=== PATIENT | female | born 1935 | race Caucasian/White ===

== ENCOUNTER 2017-01-09 04:11 | Inpatient (IN) | payer MEDICARE, OTHER ==
[2017-01-03 16:46] LABS: BASOPHILS 0.6 %; BASOPHILS ABSOLUTE 0.06 10/3/uL (0.0-0.16); EOSINOPHILS 2.1 %; EOSINOPHILS ABSOLUTE 0.22 10/3/uL (0.0-0.53); HEMATOCRIT 34.5 % (36.0-48.0); HEMOGLOBIN 11.3 g/dL (12.0-16.0); IMMATURE GRANULOCYTES 0.2 %; IMMATURE GRANULOCYTES ABSOLUTE 0.02 10/3/uL (0.0-0.11); LYMPHOCYTES 21.6 %; LYMPHOCYTES ABSOLUTE 2.25 10/3/uL (0.67-4.30); MEAN PLATELET VOLUME 11.5 fL (9.2-13.0); MONOCYTES 7.1 %; MONOCYTES ABSOLUTE 0.74 10/3/uL (0.21-1.20); NEUTROPHILS 68.4 %; NEUTROPHILS ABSOLUTE 7.13 10/3/uL (2.02-8.40); PLATELET COUNT 338 10/3/uL (150-400); RED CELL COUNT 3.88 10/6/uL (4.0-5.6); WHITE BLOOD CELLS 10.4 10/3/uL (4.5-10.5)
[2017-01-03 16:48] LABS: MANUAL DIFF NO %; MEAN CORPUS HGB CONC 32.8 g/dL (32.0-36.0); MEAN CORPUSCULAR HEMOGLOB 29.1 pg (26.0-34.0); MEAN CORPUSCULAR VOLUME 88.9 fL (80-100); RBC DISTRIBUTION WIDTH 14.3 % (12.0-16.0)
[2017-01-03 16:57] LABS: INTERNATIONAL NORMAL RATI 1.4 UNITS (-); PARTIAL THROMBO TIME 29.8 SEC (22.5-37.2); PROTIME (NOT ORD) 16.7 SEC (12.0-14.5)
[2017-01-03 17:02] LABS: A/G RATIO 0.8 (0.7-1.9); ALBUMIN 3.3 G/DL (3.5-5.0); ALKALINE PHOSPHATASE 53 U/L (45-117); BUN (BLOOD UREA NITROGEN) 37 MG/DL (6-23); CALCIUM, SERUM 9.8 MG/DL (8.5-10.4); CHLORIDE, SERUM 102 MMOL/L (96-112); CO2 (CARBON DIOXIDE) 29 MMOL/L (24-34); CREATININE 1.72 MG/DL (0.55-1.02); GFR AFRICAN AMERICAN 32 ML/MIN (>=60); GFR NON AFRICAN AMERICAN 28 ML/MIN (>=60); GLOBULIN 4.1 G/DL (2.5-4.1); GLUCOSE, SERUM 124 MG/DL (60-99); POTASSIUM, SERUM 4.6 MMOL/L (3.5-5.3); SGOT(AST) 11 U/L (5-40); SGPT(ALT) 18 U/L (5-65); SODIUM, SERUM 139 MMOL/L (135-148); TOTAL BILIRUBIN 0.6 MG/DL (0-1.2); TOTAL PROTEIN 7.4 G/DL (6.0-8.5)
[2017-01-03 17:48] LABS: ASCORBIC ACID (UR NOT ORDER) NEG (NEG); BILIRUBIN, URINE NEGATIVE (NEG); KETONE, URINE NEGATIVE (NEG); LEUKOCYTE ESTERASE(NOT OR NEG (NEG); WBC (NOT ORDERED) (RFLEX) 0 (0-5)
--- NOTE | ~2017-01-09 | OP ---
Record Of Operation [facility] [address] [place]. [address] NAME: AZEB ELDER : 37 STATUS : ADM IN PAT#: [id number] AGE: 81 ADM/REG DATE : 01/09/17 MR#: [id number] REPORT SERV DATE: 01/09/17 DICTATED BY: HARDIK VALENTINE DATE: 01/09/17 REPORT STATUS : Draft TRANSCRIBED BY: MODRebecca DATE: 01/09/17 DATE OF PROCEDURE: 01/09/2017 PREOPERATIVE DIAGNOSIS: Left osteoarthritis with rotator cuff tear. POSTOPERATIVE DIAGNOSIS: Left osteoarthritis with rotator cuff tear. PROCEDURE PERFORMED: Left reverse shoulder arthroplasty. COMPLICATIONS: None. ANESTHESIA: General endotracheal with regional block per Anesthesia. ESTIMATED BLOOD LOSS: 100. FLUIDS: 600 crystalloid. INDICATIONS: This 81-year-old female who is known to me. She has done well from a right- sided total shoulder arthroplasty years ago, but had a cuff tear on the left side and at 81 years old wished to proceed with reverse shoulder arthroplasty after discussion of risks, benefits, alternatives of the procedure. PROCEDURE IN DETAIL: The patient was induced in supine position. She was taken in the beach chair position with care to maintain the cervical lordosis. Time-out protocol was enforced. Ancef was administered. The deltopectoral approach was utilized. We retracted the cephalic vein laterally and released the pectoralis 1 cm from its insertion. We lysed subdeltoid adhesions and placed a Nolen retractor. We released the biceps sheath and tenodesed the biceps to the pectoralis major. We resected the biceps tendon and performed a subscapularis peel technique. We isolated the fibrofatty layer and removed the osteophytes. A head cut was made and 20 degrees of retroversion. This patient had a very tight small canal and we spent extra time to dilate that. Once the head cut had been made and made sure we were not perforating and made sure that the stem would go down all the way, we used the proximal metaphyseal reamer, and working alternatively with the 8 and 9 reamer, we rolled to seat an 8 relatively well. Fukuda retractor was placed. We isolated the axillary nerve and released the inferior capsule. There were copious amounts of loose bodies, which were removed. There were some osteophytes around the glenoid, which were taken down with a rongeur and an osteotome. We then sequentially drilled the central reaming aerial applicator pilot hole followed by the reamer on the glenoid face. We impacted the trunnion and placed 36 mm screws in locking mode. 36 mm glenoid sphere was then used and impacted in position and checked and found to be satisfactory. We then did a trial reduction with a 0 poly and this was satisfactory. We impacted the stem with [employer] around it and selected the 0 poly. This was reduced without difficulty. Record Of Operation [facility] [id number] [facility] [place]. [address] NAME: AZEB ELDER : 37 STATUS : ADM IN [facility]#: [id number] AGE: 81 ADM/REG DATE : 01/09/17 MR#: [id number] REPORT SERV DATE: 01/09/17 DICTATED BY: HARDIK VALENTINE. DATE: 01/09/17 REPORT STATUS : Draft TRANSCRIBED BY: MODL DATE: 01/09/17 The subscap was repaired in neutral. Hemovac drain was placed. We irrigated copiously with pulsatile lavage and tranexamic acid. The wound was closed in layers. The patient tolerated the procedure well and sent to the PACU in stable condition. POSTOPERATIVE PLAN: Elbow range of motion, pendulums reverse shoulder protocol. BSS/MODL Hardik Valentine M.D. / [id number] CC: Hardik Valentine M.D.
[~2017-01-09 04:11] MED LIST: ADVAIR100 INH; APRES50 PO; ARTHROTEC 50 PO; ARTHROTEC 75 PO; ASA5GR PO; ASAB PO; ASABAYER PO; B COMPLETE PO; BYDUREON2 MG SQ; COLON HEALTH PO; DEMA10T PO; DEMA20 PO; DEXILANT DR PO; DITRO5 PO; DITROXL5 PO; ELIQUIS 5 MG TAB5 MG PO; ERYTHROCIN250 MG PO; FLONASE NAS; FLOVENT DISK50 MCG INH; GLUCOPHAGE1000 MG PO; GLUCOTRO10 PO; GLUCPH PO; HYDROCHLOROT25 MG PO; INSNOV7030 SC; KAPIDEX60 MG PO; KDUR20 PO; LISINOPRIL40 MG PO; NORCO1 TA2 PO; NOVOLOGMIX SC; NOVOPENMIX SC; PERCOCET1 TA2 PO; PLAVIX PO; PR25 PO; PRIN5 PO; PROTONIX PO; RYTHMOL150 MG PO; VICTOZA18 MG/3 ML SC; VITAMIN B-121000 MC1 SL; ZOCOR40 PO; [UNRECOGNIZED DRUG - REMARK]
[2017-01-10 04:24] LABS: HEMOGLOBIN 9.9 g/dL (12.0-16.0)
[2017-01-10 04:25] LABS: HEMATOCRIT 30.7 % (36.0-48.0)
[2017-01-10 04:37] LABS: CALCIUM, SERUM 8.9 MG/DL (8.5-10.4); CHLORIDE, SERUM 107 MMOL/L (96-112); CO2 (CARBON DIOXIDE) 25 MMOL/L (24-34); GFR AFRICAN AMERICAN 38 ML/MIN (>=60); GFR NON AFRICAN AMERICAN 33 ML/MIN (>=60); POTASSIUM, SERUM 4.7 MMOL/L (3.5-5.3); SODIUM, SERUM 142 MMOL/L (135-148)
[2017-01-10 04:58] LABS: BUN (BLOOD UREA NITROGEN) 30 MG/DL (6-23); GLUCOSE, SERUM 164 MG/DL (60-99)
[2017-01-11 04:34] LABS: BASOPHILS 0.3 %; BASOPHILS ABSOLUTE 0.03 10/3/uL (0.0-0.16); EOSINOPHILS 1.2 %; EOSINOPHILS ABSOLUTE 0.12 10/3/uL (0.0-0.53); HEMOGLOBIN 9.7 g/dL (12.0-16.0); IMMATURE GRANULOCYTES 0.3 %; IMMATURE GRANULOCYTES ABSOLUTE 0.03 10/3/uL (0.0-0.11); LYMPHOCYTES ABSOLUTE 1.73 10/3/uL (0.67-4.30); MEAN CORPUS HGB CONC 32.3 g/dL (32.0-36.0); MEAN CORPUSCULAR HEMOGLOB 28.7 pg (26.0-34.0); MEAN CORPUSCULAR VOLUME 88.8 fL (80-100); MEAN PLATELET VOLUME 11.3 fL (9.2-13.0); MONOCYTES 10.4 %; MONOCYTES ABSOLUTE 1.06 10/3/uL (0.21-1.20); NEUTROPHILS 70.8 %; NEUTROPHILS ABSOLUTE 7.19 10/3/uL (2.02-8.40); PLATELET COUNT 275 10/3/uL (150-400); RBC DISTRIBUTION WIDTH 14.2 % (12.0-16.0); RED CELL COUNT 3.38 10/6/uL (4.0-5.6); WHITE BLOOD CELLS 10.2 10/3/uL (4.5-10.5)
[2017-01-11 04:35] LABS: MANUAL DIFF NO %
[2017-01-11 04:54] LABS: BUN (BLOOD UREA NITROGEN) 28 MG/DL (6-23); CALCIUM, SERUM 8.7 MG/DL (8.5-10.4); CHLORIDE, SERUM 106 MMOL/L (96-112); CO2 (CARBON DIOXIDE) 25 MMOL/L (24-34); CREATININE 1.43 MG/DL (0.55-1.02); GFR AFRICAN AMERICAN 40 ML/MIN (>=60); GFR NON AFRICAN AMERICAN 35 ML/MIN (>=60); GLUCOSE, SERUM 166 MG/DL (60-99); POTASSIUM, SERUM 4.3 MMOL/L (3.5-5.3); SODIUM, SERUM 141 MMOL/L (135-148)
== END 2017-01-11 15:34 | DRG 483 ==
LOC: SDC/OF 04:11 → PACU 08:47 → 3SO 10:44
PROVIDERS: Nurse Practitioner; Orthopaedic Surgery Sports Medicine
PROC: 0RRK00Z Replacement of Left Shoulder Joint with Reverse Ball and Socket Synthetic Substitute, Open Approach (ICD-10-PCS; principal; 2017-01-09 05:30)
DX: M19.012 Primary osteoarthritis, left shoulder (principal); J44.9 Chronic obstructive pulmonary disease, unspecified; I48.2 Chronic atrial fibrillation; I12.9 Hypertensive chronic kidney disease with stage 1 through stage 4 chronic kidney disease, or unspecified chronic kidney disease; N18.3 Chronic kidney disease, stage 3 (moderate); Z79.01 Long term (current) use of anticoagulants; E78.5 Hyperlipidemia, unspecified; K21.9 Gastro-esophageal reflux disease without esophagitis
CPT/HCPCS: 36415; 73030-LT; 80048; 80053; 81001; 82962; 83036; 83735; 85014; 85018; 85025; 85610; 85730; 86850; 86900; 86901; 87641; 88305; 88311; 93005; 97110-GP; 97116-GP; 97161-GP; A9270-GY; C1713; C1776; G8978-CL-GP; G8979-CJ-GP; J0330; J0360; J0690; J2250; J2270; J2370; J2405; J2710; J2795; J3010